=== PATIENT | female | born 2000 | race Caucasian/White ===

== ENCOUNTER 2022-02-22 13:30 | Inpatient (IN) | payer OTHER ==
[~2022-02-22 13:30] MED LIST: Bupivacaine/Epinephrine 0.25% 30 ML VIAL ONE; Terbutaline Sulfate 1 MG/ML VIAL ONE; ePHEDrine Sulfate 50 MG/10 ML VIAL ONE
[2022-02-22] MEDS ORDERED: hydrALAZINE 20 MG/ML VIAL SLOW IVP PRN ×2 (14:49→17:04)
[2022-02-22] MEDS ORDERED: Lidocaine 1% (PF) 30 ML VIAL SC PRN (17:04)
[2022-02-22] MEDS ORDERED: Methylergonovine 0.2 MG/ML VIAL IM PRN (17:04)
[2022-02-22] MEDS ORDERED: Ondansetron PF 4 MG/2 ML Vial IVP PRN ×2 (17:04→22:25)
[2022-02-22] MEDS ORDERED: Acetaminophen 500 MG TAB PO PRN (17:04)
[2022-02-22] MEDS ORDERED: Butorphanol Tartrate 1 MG/ML VIAL SLOW IVP PRN (17:04)
[2022-02-22] MEDS ORDERED: HYDROcodone/Acetaminophen 5/325 mg Tablet PO PRN ×2 (17:04)
[2022-02-22] MEDS ORDERED: Ibuprofen 800 MG TAB PO PRN (17:04)
[2022-02-22] MEDS ORDERED: Carboprost 250 MCG/ML AMP IM PRN (17:04)
[2022-02-22] MEDS ORDERED: Promethazine HCl 25 MG/ML VIAL IM PRN ×2 (17:04→22:25)
[2022-02-22] MEDS ORDERED: Diphenoxylate HCl/Atropine Tablet PO PRN (17:04)
[2022-02-22] MEDS ORDERED: Misoprostol 200 MCG TAB PR PRN (17:04)
[2022-02-22] MEDS ORDERED: NS w/ Oxytocin 30 units 500 ML IV SCH (17:15)
[2022-02-22 18:28] LABS: Hemoglobin 13.7 g/dL (12.0-15.5); Mean Corpuscular HGB CONC 36.1 g/dL (32.0-36.0); Mean Corpuscular Hemoglobin 33.3 pg (27.0-33.0); Mean Platelet Volume 11.8 fl (7.4-10.4); Platelet Count 157 10x3/uL (150-450); RBC Distribution Width 12.1 % (11.5-14.5); Red Blood Cell (RBC) Count 4.12 10x6/uL (3.90-5.03); White Blood Cell (WBC) Count 15.2 10x3/uL (3.5-10.5)
[2022-02-22 18:42] VITALS: BMI 32.2
[2022-02-22 18:56] LABS: Hep B Surf Ag Non-Reactive S/CO (NonReactive); Syphilis Antibody Nonreactive (Nonreactive); Syphilis Antibody Index 0.04 S/CO (<1.00 Non-Reactive)
[2022-02-22 19:00] LABS: HBSAg Index 0.15 S/CO (0-0.99)
[2022-02-22 19:21] LABS: SARS-CoV-2 NAA Rapid Test Not Detected (NotDetected)
[2022-02-22] MEDS ORDERED: Fentanyl 2 mcg/Bup 0.1% Cadd 100 ML ONE (21:42)
[2022-02-22] MEDS: Lactated Ringer's 1,000 ML IV SCH ×2 (21:46→23:08)
[2022-02-22] MEDS ORDERED: Naloxone HCl 0.4 mg/ml Vial IVP PRN ×2 (22:25)
[2022-02-22] MEDS ORDERED: Lactated Ringer's 500 ML IV PRN (22:25)
[2022-02-22] MEDS ORDERED: ePHEDrine Sulfate 50 MG/10 ML VIAL SLOW IVP PRN (22:25)
[2022-02-22] MEDS ORDERED: Acetaminophen 325 MG TAB PO PRN (22:25)
[2022-02-22] MEDS ORDERED: Moisturizing Cream (Eucerin) 113 GM JAR TOP PRN (22:25)
[2022-02-22] MEDS ORDERED: diphenhydrAMINE 50 MG/ML VIAL IVP PRN (22:25)
[2022-02-22] MEDS ORDERED: Fentanyl 2 mcg/Bupivacaine 0.1% Cassette 100 ML EPIDURAL SCH (22:30)
[2022-02-22] MEDS ORDERED: Communication Order-Pharmacy FS SCH (22:30)
[2022-02-23] MEDS: Lactated Ringer's 1,000 ML IV SCH (07:25)
[2022-02-23] MEDS: NS w/ Oxytocin 30 units 500 ML IV SCH ×2 (10:53→12:55)
[2022-02-23] MEDS ORDERED: Meperidine HCl/PF 25 MG/ML VIAL ONE (11:36)
[2022-02-23] MEDS ORDERED: Methylergonovine 0.2 MG/ML VIAL ONE (12:15)
[2022-02-23] MEDS ORDERED: Promethazine HCl 25 MG/ML VIAL IM SCH (13:15)
[2022-02-23] MEDS ORDERED: Meperidine HCl/PF 25 MG/ML VIAL SLOW IVP SCH (13:15)
[2022-02-23] MEDS ORDERED: CEFAZOLIN 2 GM in Sodium Chloride 0.9% 100 ML IVPB SCH (14:00)
[2022-02-23] MEDS ORDERED: HYDROcodone/Acetaminophen 5/325 mg Tablet PO PRN ×2 (15:41→17:25)
[2022-02-23] MEDS ORDERED: Lanolin Ointment 7 GM TUBE TOP PRN (15:41)
[2022-02-23] MEDS ORDERED: Milk Of Magnesia 30 ML UDCUP PO PRN (15:41)
[2022-02-23] MEDS ORDERED: hydrALAZINE 20 MG/ML VIAL SLOW IVP PRN (15:41)
[2022-02-23] MEDS ORDERED: Benzocaine-Menthol 82.5 ML CAN TOP PRN (15:41)
[2022-02-23] MEDS ORDERED: Promethazine HCl 25 MG/ML VIAL IM PRN (15:41)
[2022-02-23] MEDS ORDERED: Bisacodyl 10 MG SUPP PR PRN (15:41)
[2022-02-23] MEDS ORDERED: Boostrix 0.5 ML (Tdap) VIAL IM ONE (15:41)
[2022-02-23] MEDS ORDERED: Ibuprofen 800 MG TAB PO SCH (16:00)
[2022-02-23] MEDS: Ferrous Sulfate 325 MG TAB PO SCH (17:30)
[2022-02-23] MEDS: CEFAZOLIN 2 GM in Sodium Chloride 0.9% 100 ML IVPB SCH (21:27)
[2022-02-23] MEDS: Docusate 100 MG CAP PO SCH (21:28)
[2022-02-23] MEDS: Ibuprofen 800 MG TAB PO SCH (21:45)
[2022-02-24 03:39] LABS: Hemoglobin 9.3 g/dL (12.0-15.5); Mean Corpuscular Hemoglobin 32.3 pg (27.0-33.0); Mean Corpuscular Volume 92.4 fl (81.6-98.3); Mean Platelet Volume 11.6 fl (7.4-10.4); Platelet Count 121 10x3/uL (150-450); RBC Distribution Width 13.3 % (11.5-14.5); Red Blood Cell (RBC) Count 2.88 10x6/uL (3.90-5.03)
[2022-02-24] MEDS: Ibuprofen 800 MG TAB PO SCH ×3 (06:20→21:13)
[2022-02-24] MEDS: CEFAZOLIN 2 GM in Sodium Chloride 0.9% 100 ML IVPB SCH (06:20)
[2022-02-24] MEDS: Docusate 100 MG CAP PO SCH ×2 (09:14→21:13)
[2022-02-24] MEDS: Prenatal Vitamin 1 TAB PO SCH (09:14)
[2022-02-24] MEDS: Ferrous Sulfate 325 MG TAB PO SCH ×2 (09:14→17:30)
[2022-02-25] MEDS: Ibuprofen 800 MG TAB PO SCH ×2 (05:09→14:05)
[2022-02-25 07:52] VITALS: BP 122/70; TEMP 98.1
[2022-02-25] MEDS: Prenatal Vitamin 1 TAB PO SCH (08:36)
[2022-02-25] MEDS: Ferrous Sulfate 325 MG TAB PO SCH (08:37)
[2022-02-25] MEDS: Docusate 100 MG CAP PO SCH (08:37)
== END 2022-02-25 14:20 | disposition home or self-care (01) | DRG 806 ==
LOC: CSHLD/OP 13:30 → CSHLD 20:48 → CSHPP 02-23 15:55
PROVIDERS: ADMIT Obstetrics & Gynecology; ATTEND Obstetrics & Gynecology
PROC: 10E0XZZ Delivery of Products of Conception, External Approach (ICD-10-PCS; principal; 2022-02-23)
PROC: 0KQM0ZZ Repair Perineum Muscle, Open Approach (ICD-10-PCS; 2022-02-23)
PROC: 10D17Z9 Manual Extraction of Products of Conception, Retained, Via Natural or Artificial Opening (ICD-10-PCS; 2022-02-23)
PROC: 0W8NXZZ Division of Female Perineum, External Approach (ICD-10-PCS; 2022-02-23)
PROC: 10H07YZ Insertion of Other Device into Products of Conception, Via Natural or Artificial Opening (ICD-10-PCS; 2022-02-23)
PROC: 30233N1 Transfusion of Nonautologous Red Blood Cells into Peripheral Vein, Percutaneous Approach (ICD-10-PCS; 2022-02-23)
DX: O69.81X0 Labor and delivery complicated by cord around neck, without compression, not applicable or unspecified (principal); O72.0 Third-stage hemorrhage; Z37.0 Single live birth; O72.2 Delayed and secondary postpartum hemorrhage; O76 Abnormality in fetal heart rate and rhythm complicating labor and delivery; Z3A.40 40 weeks gestation of pregnancy; O70.1 Second degree perineal laceration during delivery; O34.03 Maternal care for unspecified congenital malformation of uterus, third trimester; Q51.810 Arcuate uterus; Z20.822 Contact with and (suspected) exposure to COVID-19
CPT/HCPCS: 36430; 51702; 85027; 86780; 86850; 86900; 86901; 87340; 88307; 99285; J0595; J0690; J2175; J2210; J2550; J2590; J3105; J3490; J7120; P9016; U0002

== ENCOUNTER 2022-03-02 00:17 | Emergency (ER) | payer OTHER | END 2022-03-02 02:06 | disposition home or self-care (01) | LOC: CSHERS 00:17 | DX: N93.9 Abnormal uterine and vaginal bleeding, unspecified (principal) | CPT/HCPCS: 76856; 93976 ==